=== PATIENT | female | born 1985 | race Hispanic/Latino ===

== ENCOUNTER 2017-12-30 15:50 | Emergency (ER) | payer OTHER ==
[2017-12-30] MEDS ORDERED: ONDANSETRON ODT 4 MG TAB ONE (16:20)
[2017-12-30] MEDS ORDERED: DiphenhydrAMINE HCL 50 MG/ML VIAL ONE (16:38)
[2017-12-30 16:44] LABS: APPEARANCE,URINE Cloudy (CLEAR); BILIRUBIN,URINE Negative (NEGATIVE); COLOR,URINE Yellow (YELLOW); GLUCOSE, URINE (UA) Negative (NEGATIVE); KETONES,URINE Negative (NEGATIVE); LEUKOCYTE ESTERASE ,URINE Trace (NEGATIVE); NITRATE,URINE Negative (NEGATIVE); OCCULT BLOOD,URINE Trace (NEGATIVE); PH,URINE 5.5 (5.0-8.0); PROTEIN,URINE Negative (NEGATIVE)
[2017-12-30 16:52] LABS: HCG,QUAL RESULT NEGATIVE (NEGATIVE)
[2017-12-30 17:03] LABS: BACTERIA,URINE Rare /HPF (None Seen); CALCIUM OXALATE CRYSTALS,UR Moderate /LPF (None Seen); RBC,URINE 0-1 /HPF (0-1); WBC,URINE 0-1 /HPF (0-1)
[2017-12-30] MEDS ORDERED: SODIUM CHLORIDE 0.9% 1000ML 1,000 ML IV ONE ×2 (17:55→18:33)
[2017-12-30] MEDS ORDERED: ONDANSETRON HCL 4 MG/2 ML VIAL ONE (17:55)
[2017-12-30 17:59] LABS: BASOPHILS % (AUTO) 0.9 % (0.0-5.0); EOSINOPHILS % (AUTO) 0.7 % (0.0-8.0); HEMATOCRIT 42.5 % (36-48); LYMPHOCYTES % (AUTO) 11.3 % (21.0-51.0); MEAN CORPUSCULAR HEMOGLOBIN 28.9 pg (27.0-33.0); MEAN CORPUSCULAR HGB CONC 34.2 g/dL (32.0-36.0); MEAN CORPUSCULAR VOLUME 84.5 fL (79-99); MONOCYTES % (AUTO) 4.4 % (3.0-13.0); NEUTROPHILS % (AUTO) 82.7 % (40.0-77.0); PLATELET COUNT (AUTO) 289 K/uL (130-400); RED BLOOD CELL COUNT(AUTO) 5.03 MIL/uL (4.00-5.50); RED CELL DISTRIBUTION WIDTH 12.8 % (11.0-15.5)
[2017-12-30 18:06] LABS: AMPHET/METH SCREEN,URINE NEGATIVE (NEGATIVE); BARBITURATE SCREEN, URINE NEGATIVE (NEGATIVE); BENZODIAZEPINES SCREEN,URINE NEGATIVE (NEGATIVE); CANNABINOID SCREEN,URINE NEGATIVE (NEGATIVE); COCAINE SCREEN,URINE NEGATIVE (NEGATIVE); OPIATE SCREEN,URINE NEGATIVE (NEGATIVE); PHENCYCLIDINE SCREEN,URINE NEGATIVE (NEGATIVE)
[2017-12-30 18:11] LABS: CREATININE 0.7 mg/dL (0.5-1.5); POTASSIUM 3.4 mmol/L (3.5-5.1)
== END 2017-12-30 20:11 | disposition home or self-care (01) ==
LOC: EDH 15:50
DX: T78.49XA Other allergy, initial encounter (principal); R11.2 Nausea with vomiting, unspecified; X58.XXXA Exposure to other specified factors, initial encounter
CPT/HCPCS: 36415; 80048; 80305; 81001; 81025; 84443; 85025; 93005; 96361; 96372; 96374; 99285; J1200; J2405; J7030 ×2

== ENCOUNTER 2018-02-19 08:22 | Emergency (ER) | payer SELFPAY ==
[2018-02-19] MEDS ORDERED: ONDANSETRON ODT 4 MG TAB ONE (09:35)
== END 2018-02-19 10:05 | disposition home or self-care (01) ==
LOC: EDH 08:22
DX: R11.2 Nausea with vomiting, unspecified (principal); T43.295A Adverse effect of other antidepressants, initial encounter; F41.9 Anxiety disorder, unspecified; Y92.89 Other specified places as the place of occurrence of the external cause

== ENCOUNTER 2018-04-19 05:30 | Day surgery (SDC) | payer OTHER, MEDICAID ==
[2018-04-18 16:30] LABS: BASOPHILS % (AUTO) 0.5 % (0.0-5.0); EOSINOPHILS % (AUTO) 0.6 % (0.0-8.0); HEMATOCRIT 43.2 % (36-48); LYMPHOCYTES % (AUTO) 19.2 % (21.0-51.0); MEAN CORPUSCULAR HEMOGLOBIN 28.1 pg (27.0-33.0); MEAN CORPUSCULAR HGB CONC 33.1 g/dL (32.0-36.0); MEAN CORPUSCULAR VOLUME 84.9 fL (79-99); MONOCYTES % (AUTO) 4.1 % (3.0-13.0); NEUTROPHILS % (AUTO) 75.6 % (40.0-77.0); NUCLEATED RED BLOOD CELLS 0.1 % (0.0-0.19); PLATELET COUNT (AUTO) 255 K/uL (130-400); RED BLOOD CELL COUNT(AUTO) 5.09 MIL/uL (4.00-5.50); WHITE BLOOD COUNT (AUTO) 9.4 K/uL (4.8-10.8)
[2018-04-18 16:34] VITALS: BP 121/68
[2018-04-19] VITALS (17 sets, daily range): BP systolic 120–136; BP diastolic 77–85
[~2018-04-19] VITALS: Ht 162.6 cm; Wt 90.0 kg
[2018-04-19] MEDS ORDERED: ACETIC ACID 0.25% 1,000 ML IRRIG.SOLN ONE (05:46)
[2018-04-19] MEDS ORDERED: STRONG IODINE SOLUTION 30ML BOTTLE ONE (05:47)
[2018-04-19] MEDS ORDERED: CEFAZOLIN SODIUM 1 GM VIAL IVP SCH (06:00)
[2018-04-19] MEDS ORDERED: LACTATED RINGERS 1000ML 1,000 ML IV SCH (06:00)
--- NOTE | 2018-04-19 06:05 | NUR ---
VALUABLES: CLOTHING, GLASSES AND CELL PHONE GIVEN TO SPOUSE.
[2018-04-19] MEDS ORDERED: PROPOFOL 10 MG/ML 20ML VIAL IV ONE ×2 (06:25→07:09)
[2018-04-19] MEDS ORDERED: LIDOCAINE PF 2% 5ML ABBOJECT ONE (06:25)
[2018-04-19] MEDS ORDERED: ROCURONIUM 10MG/1ML SYR 10 MG/ML ML ONE (06:25)
[2018-04-19] MEDS ORDERED: SUCCINYLCHOLINE 200MG/10ML SYR ONE (06:25)
[2018-04-19] MEDS ORDERED: FENTANYL CITRATE PF 50 MCG/1 ML 2ML VIAL ONE ×2 (06:25→07:10)
[2018-04-19] MEDS ORDERED: MIDAZOLAM HCL 1 MG/ML 2ML VIAL ONE (06:25)
[2018-04-19] MEDS ORDERED: ONDANSETRON HCL 4 MG/2 ML VIAL ONE (06:26)
[2018-04-19] MEDS ORDERED: DEXAMETHASONE SOD PHOSPHATE 4 MG/ML 1ML VIAL ONE (06:56)
[2018-04-19] MEDS ORDERED: GLYCOPYRROLATE 1 MG/5 ML SYRINGE ONE (06:59)
--- NOTE | 2018-04-19 08:25 | NUR ---
POST OP RECEIVED PT FROM PACU, S/P CERVICAL CONE BIOPSY. PT AWAKE AND ALERT, NO DISTRESS NOTED. VS STABLE. HARRISON PAD IN PLACE, SLIGHT DRAINAGE NOTED.
--- NOTE | 2018-04-19 08:58 | NUR ---
DC DC INSTRUCTIONS GIVEN TO PT /PT SPOUSE, INSTRUCTED TO F/U WITH DR. ADKINS IN 1 WEEK, VERBALIZED UNDERSTANDING. PT WILL BE GETTING DRESS AND DC HOME , PT STABLE , DENIES ANY PAIN OR DISCOMFORTS SPOUSE AT BEDSIDE. PIV REMOVED, CATHETER INTACT, SITE ASYMTOMATIC
--- NOTE | 2018-04-19 09:10 | NUR ---
DC PT DC HOME VIA W/C ,NO DISTRESS NOTED DENIES ANY PAIN OR DISCOMFORTS , ACCOMPANIED BY SPOUSE
== END 2018-04-19 09:10 | disposition home or self-care (01) ==
LOC: DAH 05:30
PROVIDERS: ATTEND Obstetrics & Gynecology
DX: N87.9 Dysplasia of cervix uteri, unspecified (principal); Z83.3 Family history of diabetes mellitus; Z82.49 Family history of ischemic heart disease and other diseases of the circulatory system
CPT/HCPCS: 36415; 57522; 84702; 85025; 86850; 86900; 86901; 88307; A4351; A4556; A4606; J0330; J1100; J2001; J2250; J2405; J2704 ×2; J3010 ×2; J3490; J7120

== ENCOUNTER 2021-12-06 20:05 | Emergency (ER) | payer MEDICAID, OTHER ==
[~2021-12-06] VITALS: Ht 162.6 cm; Wt 91.2 kg
[2021-12-06 21:12] LABS: BASOPHILS % (AUTO) 0.2 % (0.0-5.0); EOSINOPHILS % (AUTO) 1.8 % (0.0-8.0); HEMATOCRIT 38.5 % (36-48); LYMPHOCYTES % (AUTO) 22.1 % (21.0-51.0); MEAN CORPUSCULAR HEMOGLOBIN 28.2 pg (27.0-33.0); MEAN CORPUSCULAR HGB CONC 33.5 g/dL (32.0-36.0); MEAN CORPUSCULAR VOLUME 84.1 fL (79-99); MONOCYTES % (AUTO) 5.5 % (3.0-13.0); NEUTROPHILS % (AUTO) 69.2 % (40.0-77.0); PLATELET COUNT (AUTO) 233 K/uL (130-400); RED BLOOD CELL COUNT(AUTO) 4.58 MIL/uL (4.00-5.50); RED CELL DISTRIBUTION WIDTH 13.6 % (11.0-15.5); WHITE BLOOD COUNT (AUTO) 9.6 K/uL (4.8-10.8)
[2021-12-06] MEDS ORDERED: 0.9%NACL 1000ML 1,000 ML IV SCH (21:30)
[2021-12-06] MEDS ORDERED: ALBUTEROL 0.083% 2.5 MG/3 ML INH IH ONE (21:30)
[2021-12-06] MEDS ORDERED: BUDESONIDE 0.5 MG/2 ML INH IH SCH (21:30)
[2021-12-06] MEDS ORDERED: IPRATROPIUM/ALBUTEROL SULFATE 3 ML SOLUTION IH ONE (21:30)
[2021-12-06 21:37] LABS: CREATININE 0.5 mg/dL (0.5-1.5); POTASSIUM 3.7 mmol/L (3.5-5.1)
[2021-12-06 21:42] LABS: ALBUMIN 2.8 g/dL (3.5-5.0); TOTAL PROTEIN, SERUM 6.9 g/dL (6.0-8.3)
[2021-12-06 22:30] VITALS: BP 116/59
[2021-12-06] MEDS ORDERED: ALBU8.5H8 IH (22:59)
[2021-12-06] MEDS ORDERED: PRED20TA3 PO (22:59)
[2021-12-06] MEDS ORDERED: MONT10TA21 PO (22:59)
== END 2021-12-06 23:15 | disposition home or self-care (01) ==
LOC: EDH 20:05
DX: J45.909 Unspecified asthma, uncomplicated (principal); Z20.822 Contact with and (suspected) exposure to COVID-19; E66.9 Obesity, unspecified; Z68.34 Body mass index [BMI] 34.0-34.9, adult; Z79.51 Long term (current) use of inhaled steroids; Z79.52 Long term (current) use of systemic steroids; Z79.899 Other long term (current) drug therapy
CPT/HCPCS: 99285; 71045; 87635; 80053; 85025; 87040 ×2; 87804 ×2; 83605; 36415; 94640 ×3; C9803